=== PATIENT | female | born 1970 | race Caucasian/White ===

== ENCOUNTER 2020-11-16 15:09 | Emergency (ER) | payer OTHER ==
[~2020-11-16] VITALS: Ht 157.5 cm; Wt 176.9 kg
[2020-11-16 15:40] LABS: ABSOLUTE BASOPHILS 0.1 thou/uL (0.0-0.2); ABSOLUTE EOSINOPHILS 0.2 thou/uL (0.0-0.7); ABSOLUTE LYMPHOCYTES 1.9 thou/uL (0.8-5.3); ABSOLUTE MONOCYTES 0.6 thou/uL (0.0-1.2); ABSOLUTE NEUTROPHILS 6.6 thou/uL (1.6-8.1); BASOPHILS 0.8 %; EOSINOPHILS 2.1 %; HEMATOCRIT 30.9 % (37.0-47.0); HEMOGLOBIN 9.5 gm/dL (12.0-15.0); LYMPHOCYTES 20.1 %; MCHC 30.6 g/dL (28.0-37.0); MCV 68.6 fL (80.0-100.0); MONOCYTES 6.1 %; NUCLEATED RBCS 0 /100WBC; PLATELET COUNT* 250 thou/uL (150-400); POLYS 70.9 %; RBC 4.51 mil/uL (4.20-5.00); RDW-CV 17.3 % (10.5-14.5); WBC 9.4 thou/uL (4.0-11.0)
[2020-11-16 15:48] LABS: ANION GAP 8 mmol/L (7-16); BUN 11 mg/dL (7-18); CALCIUM 8.2 mg/dL (8.5-10.1); CHLORIDE 105 mmol/L (98-107); CO2 27 mmol/L (21-32); CREATININE 0.7 mg/dL (0.6-1.3); GLUCOSE 95 mg/dL (70-99); POTASSIUM 3.7 mmol/L (3.5-5.1); SODIUM 140 mmol/L (136-145)
[2020-11-16 15:51] LABS: APTT 24.2 Seconds (25.0-31.3); PROTIME 10.6 Seconds (9.20-11.50)
[2020-11-16 16:01] LABS: ALBUMIN 3.1 g/dL (3.4-5.0); ALKALINE PHOSPHATASE 123 U/L (46-116); CK-MB MASS < 0.5 ng/mL (<0.5-3.6); LIPASE 116 U/L (73-393); NT-PRO BRAIN NAT PEPTIDE 162 pg/mL (<300); SGOT 8 U/L (15-37); SGPT 16 U/L (30-65); TOTAL BILIRUBIN 0.2 mg/dL (<0.1-1.0)
[2020-11-16 16:20] LABS: ANISOCYTOSIS 1+; HYPOCHROMASIA 1+; PLATELET ESTIMATE ADEQUATE
[2020-11-16 16:21] LABS: MICROCYTES 1+
[2020-11-16] MEDS ORDERED: PREDNISONE 20 M20 M1 PO (16:23)
[2020-11-16] MEDS ORDERED: ZYRTEC 10 MG TA10 MG PO (18:06)
[2020-11-16] MEDS ORDERED: PEPCID20 MG PO (18:06)
[2020-11-16 18:18] VITALS: BP 145/65
--- NOTE | 2020-11-19 10:35 | EKG ---
[place] [address] ELECTROCARDIOGRAM REPORT Name: LOR CALDERON Room: [place]#: [id number] Admission: 11/16/20 Attend Phys: Discharge: 11/16/20 Date of : 70 Date of Service: 11/16/20 1517 Report #: [id number] THIS REPORT FOR: //name// [facility] ED Test Date: 2020-11-16 Test Time: 15:17:57 Pat Name: LOR CALDERON Department: Room: Gender: F [employer]: CD : 1970 Requested By: Andrey Martini Order Number: [id number] MD: Everton Acevedo Measurements Intervals [place] Rate: 97 P: 24 OR: 140 QRS: -24 QRSD: 97 T: 91 QT: 353 QTc: 449 Interpretive Statements Sinus rhythm Probable LVH with secondary repol abnrm Inferior infarct, old No previous ECG available for comparison Electronically Signed On 11-19-2020 10:34:57 CDT by Everton Acevedo [email or web address] <ELECTRONICALLY SIGNED> By: Everton Acevedo MD, FAC 11/19/20 1034 1517 1517 Everton Acevedo MD, [facility] /EPI
== END 2020-11-16 18:19 | disposition home or self-care (01) ==
LOC: M.ERS 15:09
PROVIDERS: Family Medicine
DX: R07.89 Other chest pain (principal); L50.9 Urticaria, unspecified